=== PATIENT | female | born 1955 | race American Indian/Alaskan Native ===

== ENCOUNTER 2017-03-19 14:04 | Outpatient (CLI) | payer OTHER ==
--- NOTE | 2017-03-19 15:03 | XRay Report ---
Right knee: Pain. There are periarticular spurs involving both medial and lateral compartments. In the lateral projection there is suspicion of irregularity of the anterior articular surface of the medial condyle at its articulation with the patella and near is a patella spur on the medial side. There is normal alignment of the joint. No significant compartment narrowing is noted. The bones are well-mineralized. There is a suprapatellar effusion. Impression: 1. Degenerative changes of the knee joint detailed above. 2. Joint effusion.
== END 2017-03-19 14:05 | disposition home or self-care (01) ==
LOC: SPVIMAG 14:04
PROVIDERS: ATTEND Orthopaedic Surgery
DX: M17.12 Unilateral primary osteoarthritis, left knee (principal); M25.462 Effusion, left knee